=== PATIENT | male | born 1950 | race Caucasian/White ===

== ENCOUNTER 2017-02-11 15:31 | Inpatient (IN) | payer OTHER ==
[~2017-02-11] VITALS: Ht 160 cm; Wt 46.7 kg
--- NOTE | ~2017-02-11 | EKG ---
[place] [address] [address] [place] [address] ELECTROCARDIOGRAM REPORT Name: YENI COOPER Room #: 445-P ADM IN M.R.#: [id number] Admission: 02/11/17 Attend Phys: Jerry Malik Discharge: Date of : 50 Report #: [id number] THIS REPORT FOR: //name// [facility] ED Test Date: 2017-02-11 Test Time: 16:04:02 Pat Name: YENI COOPER Department: Room: [facility] Gender: M [facility] Director: Kelsie ANDRADE : 1950 Requested By: Joanne Garduno Order Number: [id number] MD: Saturnino Escobar Measurements Intervals [place] Rate: 71 P: 29 [place]: 148 QRS: 82 QRSD: 116 T: 71 QT: 398 QTc: 433 Interpretive Statements Sinus rhythm Incomplete right bundle branch block Artifact in lead(s) Compared to ECG 12/31/2016 14:44:57 no significant change was found Electronically Signed On 02-12-2017 8:36:15 CDT by Saturnino Escobar [email or web address] <ELECTRONICALLY SIGNED> By: Saturnino Escobar MD, [facility] 02/12/17 0836 [id number] 160 Saturnino Escobar MD, [facility] /EPI
--- NOTE | ~2017-02-11 | H ---
[facility] [address] [place] [address] HISTORY AND PHYSICAL Name: YENI COOPER Room #: 445-P ADM IN M.R.#: [id number] Admission: 02/11/17 Attend Phys: Jerry Malik Discharge: Date of : 50 Report #: [id number] THIS REPORT FOR: //name// CC: Jake Nina DATE OF SERVICE: 02/11/2017 CHIEF COMPLAINT: Weakness. HISTORY OF PRESENT ILLNESS: The patient is a 66-year-old gentleman who was admitted to the Emergency Room from home with general weakness. All the information was obtained by reviewing the electronic record. The patient has a history of Down syndrome with comorbid Alzheimer's disease and is unable to give any information. He lives at home with his brother who is the primary caregiver, but he reported to the ER staff that in the last few days, he has been weaker than usual, unable to walk, which is beyond his baseline. He has reported a cough and generally just has been asleep more and requiring more hands on assistance and globally weak. There was a chest x-ray through the Emergency Room which suggested a subtle left lower lobe infiltrate. PAST MEDICAL HISTORY: Down syndrome, Alzheimer disease. PAST SURGICAL HISTORY: He has had a vein stripping from right leg. FAMILY HISTORY: Unknown. SOCIAL HISTORY: No chronic alcohol or tobacco use. His brother has been his primary caregiver for 12 years. ALLERGIES: None. MEDICATIONS: Omeprazole. REVIEW OF SYSTEMS: He is unable to give review. PHYSICAL EXAMINATION: VITAL SIGNS: Temperature 36.6, pulse 57, respirations 16, blood pressure 111/80, O2 sat 100% on room air. GENERAL: He is awake, lying in bed, just kind of moans. He is nonverbal. HEAD AND NECK: Unremarkable. LUNGS: Clear. HEART: Regular. ABDOMEN: Soft, normoactive bowel sounds. EXTREMITIES: No edema. LABORATORY DATA: His white count is 5. Basic chemistry is unremarkable. Chest [facility] [address] [place] [address] HISTORY AND PHYSICAL Name: YENI COOPER Room #: 445-[facility] IN [facility]#: [id number] Admission: 02/11/17 Attend Phys: Jerry Malik Discharge: Date of : 50 Report #: [id number] x-ray was reviewed. ASSESSMENT: 1. Community acquired pneumonia. 2. Moderate protein calorie malnutrition with albumin 2.7. 3. Down syndrome. 4. Alzheimer disease. PLAN: Continue antibiotics and supportive measures. Social work will help with assistance and placement into his nursing facility. He has do not resuscitate status. <ELECTRONICALLY SIGNED> By: Aquilino Haji MD 02/12/17 1706 [id number] Aquilino Haji MD /nt
--- NOTE | ~2017-02-11 | D ---
[facility] [address] [place] [address] DISCHARGE SUMMARY Name: YENI COOPER Room #: 445-P ADM IN M.R.#: [id number] Admission: 02/11/17 Attend Phys: Jerry Malik Discharge: Date of : 50 Report #: [id number] THIS REPORT FOR: //name// CC: Jake Nina FINAL DIAGNOSES: 1. Community acquired pneumonia. 2. Down syndrome. 3. Alzheimer disease. HOSPITAL COURSE: The patient was admitted from home with weakness. He was diagnosed of community acquired pneumonia and treated accordingly. His family made him DNR status due to his Down syndrome with recently progressive dementia thought to be Alzheimer disease. He was treated supportively. Ultimately, the family wished to place him in a nursing facility. PHYSICAL EXAMINATION: GENERAL: On the day of discharge, he was awake, resting in bed, but nonverbal at baseline. VITAL SIGNS: Stable and reviewed electronically. LUNGS: Clear. HEART: Regular. ABDOMEN: Soft. EXTREMITIES: No edema. DISPOSITION: He will be transferred to [facility] under the care of the inhouse physician. Diet and activity as tolerated. PT, OT, ST, DNR status. Medicines are Ceftin for 3 days, Zithromax for 1 day, Prilosec daily and a multivitamin. Prognosis is poor. <ELECTRONICALLY SIGNED> By: Aquilino Haji MD 02/19/17 [id number] MD mary Briggs
[~2017-02-11 15:31] MED LIST: DULCOLAX STOOL100 MG PO; NAPROSYN500 MG PO; PRILOSEC 20 MG20 MG PO; UNICOMPLEX M TA1 TA1 PO; ZOFRAN ODT8 MG PO
[2017-02-11 16:16] LABS: ABSOLUTE NEUTROPHILS 3.8 thou/uL (1.4-8.2); BASOPHILS 0.4 % (0.0-2.0); HEMATOCRIT 41.1 % (42.0-52.0); LYMPHOCYTES 20.6 % (24.0-44.0); MCH 34.8 pg (26.0-34.0); MCHC 34.2 g/dL (28.0-37.0); MCV 101.7 fL (80.0-100.0); MONOCYTES 11.5 % (1.0-8.0); PLATELET COUNT 269 thou/uL (150-400); POLYS 66.5 % (36.0-66.0); RBC 4.04 mil/uL (4.50-6.00); RDW 13.9 % (10.5-14.5); WBC 5.7 thou/uL (4.0-11.0)
[2017-02-11 16:18] LABS: MANUAL DIFF NO
[2017-02-11 16:22] LABS: ANION GAP 4 mmol/L (7-16); BUN 13 mg/dL (7-18); CALCIUM 8.4 mg/dL (8.5-10.1); CHLORIDE 106 mmol/L (98-107); CO2 32 mmol/L (21-32); GLUCOSE 98 mg/dL (74-106); POTASSIUM 4.5 mmol/L (3.5-5.1); SODIUM 142 mmol/L (136-145)
[2017-02-11 16:29] LABS: ALBUMIN 2.7 g/dL (3.4-5.0); ALKALINE PHOSPHATASE 128 U/L (46-116); SGOT 62 U/L (15-37); SGPT 38 U/L (30-65); TOTAL BILIRUBIN 0.3 mg/dL (<0.1-1.0); TOTAL PROTEIN 7.4 g/dL (6.4-8.2); TROPONIN-I < 0.04 ng/mL (<0.04-0.07)
[2017-02-11 18:21] VITALS: BP 114/56
[2017-02-11] MEDS ORDERED: CENTRUM SILVER1 EAC2 PO (19:40)
[2017-02-11 19:53] VITALS: BP 103/80
[2017-02-12 04:45] VITALS: BP 111/80
[2017-02-12 08:45] VITALS: BP 106/52
[2017-02-12 16:40] VITALS: BP 99/49
[2017-02-12 19:47] VITALS: BP 92/47
[2017-02-13 04:44] VITALS: BP 99/54
[2017-02-13 08:49] VITALS: BP 110/57
[2017-02-13 12:47] VITALS: BP 80/52
[2017-02-13 16:45] VITALS: BP 91/55
[2017-02-13 19:39] VITALS: BP 85/50
[2017-02-14 04:14] VITALS: BP 130/62
[2017-02-14 06:29] LABS: HEMATOCRIT 34.4 % (42.0-52.0); MCH 34.8 pg (26.0-34.0); MCHC 34.3 g/dL (28.0-37.0); MCV 101.6 fL (80.0-100.0); RBC 3.39 mil/uL (4.50-6.00); RDW 13.8 % (10.5-14.5); WBC 4.2 thou/uL (4.0-11.0)
[2017-02-14 06:34] LABS: HEMOGLOBIN 11.8 gm/dL (14.0-18.0)
[2017-02-14 06:38] LABS: CALCIUM 7.7 mg/dL (8.5-10.1); CREATININE 0.9 mg/dL (0.7-1.3); POTASSIUM 4.6 mmol/L (3.5-5.1)
[2017-02-14 07:43] VITALS: BP 132/56
[2017-02-14 16:40] VITALS: BP 97/62
[2017-02-14 19:49] VITALS: BP 108/58
[2017-02-15 04:07] VITALS: BP 109/61
[2017-02-15 06:03] LABS: CALCIUM 7.8 mg/dL (8.5-10.1); CREATININE 0.8 mg/dL (0.7-1.3)
[2017-02-15] MEDS ORDERED: CEFTIN 250250 MG/52 PO (09:47)
[2017-02-15] MEDS ORDERED: AZITHROMYCIN 2250 MG PO (09:48)
[2017-02-15 20:13] VITALS: BP 108/54
[2017-02-16 06:10] VITALS: BP 92/57
[2017-02-16 07:23] VITALS: BP 96/61
[2017-02-16 11:23] VITALS: BP 87/51
[2017-02-16 16:00] VITALS: BP 98/52
[2017-02-16 20:45] VITALS: BP 121/64
[2017-02-17 04:24] LABS: HEMATOCRIT 33.9 % (42.0-52.0); HEMOGLOBIN 11.7 gm/dL (14.0-18.0); MCH 34.7 pg (26.0-34.0); MCHC 34.5 g/dL (28.0-37.0); MCV 100.6 fL (80.0-100.0); RBC 3.37 mil/uL (4.50-6.00); RDW 13.8 % (10.5-14.5); WBC 7.2 thou/uL (4.0-11.0)
[2017-02-17 04:30] LABS: CALCIUM 7.7 mg/dL (8.5-10.1); CREATININE 0.8 mg/dL (0.7-1.3); POTASSIUM 3.9 mmol/L (3.5-5.1)
[2017-02-17 05:00] VITALS: BP 97/59
[2017-02-17 07:24] VITALS: BP 104/46
[2017-02-17 15:48] VITALS: BP 98/56
[2017-02-17 19:35] VITALS: BP 116/56
[2017-02-18 05:15] VITALS: BP 94/52
[2017-02-18] MEDS ORDERED: AZITHROMYCIN 2250 MG PO (07:53)
[2017-02-18] MEDS ORDERED: CEFTIN 250250 MG/52 PO (07:53)
[2017-02-18 16:00] VITALS: BP 97/57
[2017-02-18 20:24] VITALS: BP 128/67
[2017-02-19 04:13] VITALS: BP 107/49
[2017-02-19 08:00] VITALS: BP 102/57
== END 2017-02-19 13:53 | DRG 166 ==
LOC: ER 15:31 → 4S 17:11 → EROBS 17:11 → 4S 17:57
PROVIDERS: Internal Medicine Geriatric Medicine; Physician Assistant
PROC: 0JBR0ZZ Excision of Left Foot Subcutaneous Tissue and Fascia, Open Approach (ICD-10-PCS; principal; 2017-02-14)
DX: J18.9 Pneumonia, unspecified organism (principal); L89.623 Pressure ulcer of left heel, stage 3; L89.223 Pressure ulcer of left hip, stage 3; E44.0 Moderate protein-calorie malnutrition; Z68.1 Body mass index [BMI] 19.9 or less, adult; Z66 Do not resuscitate; R62.50 Unspecified lack of expected normal physiological development in childhood; G30.9 Alzheimer's disease, unspecified; F02.80 Dementia in other diseases classified elsewhere, unspecified severity, without behavioral disturbance, psychotic disturbance, mood disturbance, and anxiety; Q90.9 Down syndrome, unspecified
CPT/HCPCS: 10100; 10102